=== PATIENT | male | born 1985 | race Caucasian/White ===

== ENCOUNTER 2017-08-15 19:27 | Emergency (ER) | payer OTHER | END 2017-08-15 20:32 | disposition other institution (70) | LOC: ED 19:27 | DX: S51.831A Puncture wound without foreign body of right forearm, initial encounter (principal); X58.XXXA Exposure to other specified factors, initial encounter; Y93.89 Activity, other specified; Y92.89 Other specified places as the place of occurrence of the external cause; Y99.8 Other external cause status ==

== ENCOUNTER 2017-08-15 19:27 | Emergency (ER) | payer SELFPAY ==
[~2017-08-15] VITALS: Ht 182.9 cm; Wt 79.4 kg
[2017-08-15 20:32] VITALS: BP 135/76
== END 2017-08-15 20:32 | disposition other institution (70) ==
LOC: ED 19:27
DX: S51.831A Puncture wound without foreign body of right forearm, initial encounter (principal); W45.8XXA Other foreign body or object entering through skin, initial encounter; Y93.89 Activity, other specified; Y92.89 Other specified places as the place of occurrence of the external cause; Y99.8 Other external cause status